=== PATIENT | male | born 1975 | race Caucasian/White ===

== ENCOUNTER → 2024-03-22 06:23 | Day surgery (SDC) | payer OTHER, SELFPAY | LOC: GI 06:23 | PROVIDERS: ATTENDING PHYSICIAN Internal Medicine | DX: Z12.11 Encounter for screening for malignant neoplasm of colon (principal); Z85.038 Personal history of other malignant neoplasm of large intestine; Z98.0 Intestinal bypass and anastomosis status | CPT/HCPCS: G0105 ==

== ENCOUNTER → 2024-09-04 08:20 | Outpatient (REF) | payer OTHER, SELFPAY | LOC: RAD 08:20 | PROVIDERS: ATTENDING PHYSICIAN Orthopaedic Surgery | DX: M75.02 Adhesive capsulitis of left shoulder (principal); M75.82 Other shoulder lesions, left shoulder | CPT/HCPCS: 73030 ==